=== PATIENT | female | born 1955 | race Caucasian/White ===

== ENCOUNTER → 2019-05-13 | Outpatient (REF) | payer MEDICARE | LOC: M LAB LCGH 14:01 | PROVIDERS: ATTEND Surgery | DX: Z12.11 Encounter for screening for malignant neoplasm of colon (principal) ==

== ENCOUNTER → 2020-02-24 | Outpatient (REF) | payer MEDICARE | LOC: M LAB REF 15:32 | PROVIDERS: ATTEND Internal Medicine Endocrinology, Diabetes & Metabolism | DX: E04.1 Nontoxic single thyroid nodule (principal) ==

== ENCOUNTER → 2021-02-03 | Outpatient (REF) | payer MEDICARE | LOC: M LAB REF 17:05 | PROVIDERS: ATTEND Internal Medicine Endocrinology, Diabetes & Metabolism | DX: E04.1 Nontoxic single thyroid nodule (principal) ==

== ENCOUNTER → 2023-07-27 | Outpatient (CLI) | payer MEDICARE | LOC: M SOG 09:34 | PROVIDERS: ATTEND Physician Assistant | DX: M25.522 Pain in left elbow (principal); M25.532 Pain in left wrist ==